=== PATIENT | female | born 1980 | race Caucasian/White ===

== ENCOUNTER 2018-01-22 15:33 | Emergency (ER) | payer OTHER ==
[2018-01-22 16:01] VITALS: BP 114/74
--- NOTE | 2018-01-22 16:31 | UC ---
Complaint Female HPI - HPI Summary HPI Summary: 37 y/o female presents to the urgent care c/o burning with urinating, frequency since this morning. she thinks it is possible UTI since she had it in the past. Pt reports Pain this morning was 8/10, but now after a normal bowel movement is like a 2/10. Pt has her menstrual cycle which stared yesterday. Pt has been drinking fluids. Pt denies fever, flank pain, Hx of kidney stones, SOB , chest pain, abdominal pain/ N/V/D, vaginal discharge. - History Of Current Complaint Chief Complaint: UCGU Stated Complaint: BURNING URINATION Time Seen by Provider: 01/22/18 16:17 Hx Obtained From: Patient Hx Last Menstrual Period: 01/21/18 Onset/Duration: Gradual Onset, Lasting Hours - 12 hrs, Still Present Severity Initially: Mild Severity Currently: Moderate Pain Intensity: 8 Pain Scale Used: 0-10 Numeric Character: Burning Aggravating Factor(s): Urination Alleviating Factor(s): Nothing Associated Signs And Symptoms: Positive: Negative. Negative: Fever, Back Pain, Vaginal Discharge, Nausea, Genital Swelling, Genital Blisters - Risk Factors Ectopic Risk Factor: Negative Ovarian Torsion Risk Factor: Negative - Allergies/Home Medications Allergies/Adverse Reactions: Allergies Allergy/AdvReac Type Severity Reaction Status Date / Time codeine Allergy Intermediate Unknown Verified 01/22/18 16:01 Reaction Details Sulfa (Sulfonamide Allergy Rash Verified 01/22/18 16:01 Antibiotics) PMH/Surg Hx/FS Hx/Imm Hx Previously Healthy: Yes - Pt denies PMHX - Surgical History Surgical History: Yes Surgery Procedure, Year, and Place: WISDOM TEETH - Family History Family History: Lung cancer - Social History Occupation: Employed Full-time Lives: With Family Alcohol Use: Weekly Substance Use Type: None Smoking Status (MU): Former Smoker Length of Time of Smoking/Using Tobacco: 8 yrs When Did the Patient Quit Smoking/Using Tobacco: 2014 Household Exposure Type: Cigarettes Review of Systems Constitutional: Negative Skin: Negative Eyes: Negative ENT: Negative Respiratory: Negative Cardiovascular: Negative Gastrointestinal: Negative Genitourinary: Dysuria, Frequency, Urgency Motor: Negative Neurovascular: Negative Musculoskeletal: Negative Neurological: Negative Psychological: Negative Is Patient Immunocompromised?: No All Other Systems Reviewed And Are Negative: Yes Physical Exam - Summary Physical Exam Summary: VITAL SIGNS: Reviewed. GENERAL: Patient is a well developed and nourished female who is sitting comfortable in the examining table. Patient is not in any acute respiratory distress. HEAD AND FACE: No signs of trauma. No ecchymosis, hematomas or skull depressions. No sinus tenderness. EYES: PERRLA, EOMI x 2, No injected conjunctiva, clear watery eyes, no nystagmus. No photophobia. EARS: Hearing grossly intact. Ear canals and tympanic membranes are within normal limits. MOUTH: pharynx with no erythema, no exudates,no palatal petechiae. no B/L tonsillar enlargement Uvula in midline. NECK: Supple, trachea is midline, no lymphadenopathy, no JVD, no carotid bruit, no c-spine tenderness, neck with full ROM. CHEST: Symmetric, no tenderness at palpation LUNGS: Clear to auscultation bilaterally. No wheezing or crackles. CVS: Regular rate and rhythm, S1 and S2 present, no murmurs or gallops appreciated. ABDOMEN: Soft, non-tender. No signs of distention. No rebound no guarding, and no masses palpated. Bowel sounds are normal. BACK:no scoliosis or lesions, non tender to palpation, No B/L CVA tenderness EXTREMITIES: FROM in all major joints, no edema, no cyanosis or clubbing. NEURO: Alert and oriented x 3. No acute neurological deficits. Speech is normal and follows commands. SKIN: Dry and warm Triage Information Reviewed: Yes Vital Signs: Initial Vital Signs Temp 98.0 F 01/22/18 15:56 Pulse 69 01/22/18 15:56 Resp 18 01/22/18 15:56 BP 114/74 01/22/18 15:56 Pulse Ox 100 01/22/18 15:56 Complaint Female Dx - Course Course Of Treatment: 37 y/o female presents to the urgent care c/o burning with urinating, frequency since this morning. she thinks it is possible UTI since she had it in the past. Pt reports Pain this morning was 8/10, but now after a normal bowel movement is like a 2/10. Pt has her menstrual cycle which stared yesterday. Pt has been drinking fluids. Pt denies fever, flank pain, Hx of kidney stones, SOB, chest pain, abdominal pain/ N/V/D, vaginal discharge. Hx obtained. PE: WNL. UA results: Blood 2+. Pt w/o any B/L CVA tenderness. Pt w/ her menstrual cycle now. Pt will be Rx Pyridium 100mg PO TID x 2 days for Dysuria. Advised to increase fluid intake. Urine sent for culture if any abnormality Pt will be notified for further treatment. Pt advised If symptoms do not improve to return to the urgent care or f/u with PCP or if flank pain develops w/ urinary symptoms to immediately to go to the ER for further treatment. D/C instructions explained. Pt understood and agreed. Left the clinic ambulating. - Differential Dx/Diagnosis Differential Diagnosis/HQI/PQRI: Cervicitis, Pelvic Inflammatory Disease, Renal Colic, Ureteral Stone, Urinary Tract Infection Provider Diagnoses: 1- Dysuria Discharge - Sign-Out/Discharge Documenting (check all that apply): Patient Departure - D/C home All imaging exams completed and their final reports reviewed: No Studies - Discharge Plan Condition: Stable Disposition: HOME Prescriptions: Phenazopyridine TAB* [Pyridium 100 mg TAB*] 100 mg PO TID #6 tab Patient Education Materials: Dysuria (ED) Referrals: Tyler Soria MD [Primary Care Provider] - 2 Days Additional Instructions: 1- Please take Pyridium 100 mg PO TID x 2 days to alleviate urinary symptoms. Increase increase fluid intake. drink cranberry juice. 2-Urine sent for culture if any abnormality, you will be notified for further treatment. 3- If you develop severe flank pain w/ your urinary symptoms please go immediately to the ER for further treatment. 4-If symptoms do not improve please return to the urgent care or f/u with your PCP for further management - Billing Disposition and Condition Condition: STABLE Disposition: Home
== END 2018-01-22 16:57 | disposition home or self-care (01) ==
LOC: UCEAST 15:33
DX: R30.0 Dysuria (principal); Z87.440 Personal history of urinary (tract) infections; Z88.5 Allergy status to narcotic agent; Z88.2 Allergy status to sulfonamides; Z87.891 Personal history of nicotine dependence
CPT/HCPCS: 81003; 87086; 99212; G0463

== ENCOUNTER 2018-02-11 08:35 | Emergency (ER) | payer OTHER ==
[2018-02-11 08:46] VITALS: BP 106/66
--- NOTE | 2018-02-11 08:49 | UC ---
Throat Pain/Nasal Willy HPI - HPI Summary HPI Summary: 37 yo female presents with sore throat for the last 3 days. She tells me that her sore throat started 3 days ago as mild, but has progressed to become more painful. Her son was recently dx'd with hand/foot/mouth and she is concerned she may have it. She has not taken anything OTC for her pain. Denies fever, chills, sinus symptoms, cough, or rash. - History of Current Complaint Chief Complaint: UCGeneralIllness Stated Complaint: SORE THROAT Time Seen by Provider: 02/11/18 08:49 Hx Obtained From: Patient Hx Last Menstrual Period: 3 weeks ago Onset/Duration: Gradual Onset Severity: Moderate Pain Intensity: 8 Pain Scale Used: 0-10 Numeric - Allergies/Home Medications Allergies/Adverse Reactions: Allergies Allergy/AdvReac Type Severity Reaction Status Date / Time codeine Allergy Intermediate Unknown Verified 02/11/18 08:41 Reaction Details Sulfa (Sulfonamide Allergy Rash Verified 02/11/18 08:41 Antibiotics) Home Medications: Home Medications Aspirin/Acetaminophen/Caffeine [Excedrin Extra Strength Caplet] 1 each PO ONCE PRN 02/11/18 [History Confirmed 02/11/18] Ibuprofen TAB* [Advil TAB*] 400 mg PO ONCE PRN 02/11/18 [History Confirmed 02/11] Naproxen Sodium [Aleve] 440 mg PO ONCE PRN 02/11/18 [History Confirmed 02/11/18] PMH/Surg Hx/FS Hx/Imm Hx - Additional Past Medical History Additional PMH: None - Surgical History Surgical History: Yes Surgery Procedure, Year, and Place: WISDOM TEETH - Family History Known Family History: Positive: Respiratory Disease Family History: Lung cancer - Social History Occupation: Employed Full-time Lives: With Family Alcohol Use: Weekly Substance Use Type: None Smoking Status (MU): Former Smoker Length of Time of Smoking/Using Tobacco: 8 yrs When Did the Patient Quit Smoking/Using Tobacco: 2014 Household Exposure Type: Cigarettes Review of Systems Constitutional: Negative Skin: Negative Eyes: Negative ENT: Sore Throat Respiratory: Negative Cardiovascular: Negative Gastrointestinal: Negative Neurovascular: Negative Neurological: Negative Psychological: Negative All Other Systems Reviewed And Are Negative: Yes Physical Exam - Summary Physical Exam Summary: GENERAL: NAD. WDWN. No pain distress. SKIN: No rashes, sores, lesions, or open wounds. HEENT: Head: AT/NC Eyes: Conjunctiva clear without inflammation or discharge. Ears: Hearing grossly normal. TMs intact, no bulging, erythema, or edema. Nose: Nasal mucosa pink and moist. NTTP maxillary and frontal sinus. Throat: Posterior oropharynx mild erythema and 2+ tonsillar enlargement. No exudates. Uvula midline. No hoarse voice or muffled voice. NECK: Supple. Nontender. No lymphadenopathy. CHEST: CTAB. No r/r/w. No accessory muscle use. Breathing comfortably and in no distress. CV: RRR. Without m/r/g. Pulses intact. Cap refill <2seconds NEURO: Alert. PSYCH: Age appropriate behavior. Triage Information Reviewed: Yes Vital Signs: Initial Vital Signs Temp 97.3 F 02/11/18 08:39 Pulse 80 02/11/18 08:39 Resp 16 02/11/18 08:39 BP 106/66 02/11/18 08:39 Pulse Ox 100 02/11/18 08:39 Vital Signs Reviewed: Yes Throat Pain/Nasal Course/Dx - Course Course Of Treatment: Pharyngitis - Differential Dx/Diagnosis Provider Diagnoses: Pharyngitis Discharge - Sign-Out/Discharge Documenting (check all that apply): Patient Departure All imaging exams completed and their final reports reviewed: No Studies - Discharge Plan Condition: Stable Disposition: HOME Prescriptions: Azithromycin TAB* [Zithromax TAB (Z-EDELMIRA) 250 mg #6 tabs] 2 tab PO .TODAY, THEN 1 DAILY #1 [email or web address] Patient Education Materials: Pharyngitis (ED) Referrals: Tyler Soria MD [Primary Care Provider] - Additional Instructions: If you develop a fever, shortness of breath, chest pain, new or worsening symptoms - please call your PCP or go to the ED. - Billing Disposition and Condition Condition: STABLE Disposition: Home
== END 2018-02-11 09:04 | disposition home or self-care (01) ==
LOC: UCEAST 08:35
DX: J02.9 Acute pharyngitis, unspecified (principal); Z88.5 Allergy status to narcotic agent; Z88.2 Allergy status to sulfonamides; Z87.891 Personal history of nicotine dependence
CPT/HCPCS: 99212; G0463

== ENCOUNTER 2019-07-14 08:13 | Inpatient (IN) | payer OTHER ==
[2019-07-14] MEDS ORDERED: Buffered Lidocaine 1% SYRIN* 1 ML/SYRINGE INTRADERM ONE (08:36)
[2019-07-14] MEDS ORDERED: Lactated Ringers 1000 ML Bag* 1,000 ML IV ONE ×2 (08:36→19:05)
[2019-07-14] MEDS ORDERED: Oxytocin in LR* 20 UNITS/1,000 ML BAG IVPB SCH ×3 (09:00→23:45)
[2019-07-14] MEDS: Lactated Ringers 1000 ML Bag* 1,000 ML IV SCH ×2 (09:59→23:51)
[2019-07-14 10:00] LABS: ABS Lymphocytes 1.6 10^3/ul (1.0-4.8); ABS Monocytes 0.6 10^3/ul (0-0.8); ABS Neutrophils 5.1 10^3/ul (1.5-7.7); Eosinophil % 0.5 %; Hematocrit 33 % (35-47); Hemoglobin 11.3 g/dL (12.0-16.0); Lymphocyte % 21.9 %; Mean Corpuscular HGB Conc 34 g/dL (31-36); Mean Corpuscular Hemoglobin 31 pg (27-31); Mean Corpuscular Volume 89 fL (80-97); Mean Platelet Volume 11.2 fL (7.4-10.4); Nucleated Red Blood Cells % 0.1; Platelet Count 116 10^3/uL (150-450); Red Blood Count 3.71 10^6 /uL (3.70-4.87); Red Cell Distribution Width 14 % (10-15); White Blood Count 7.5 10^3/uL (3.5-10.8)
[2019-07-14 10:22] LABS: Urine Benzodiazepine Screen None Detected (None Detect); Urine Opiates Screen None Detected (None Detect)
--- NOTE | 2019-07-14 13:54 | HP ---
General Information - Reason for Visit induction of labor 39 2/7 weeks - General Information Maternal Age: 39 Grav: 2 Para: 1 SAB: 0 IEA: 0 Estimated Due Date: 07/19/19 Determined By: LMP Maternal Blood Type and Rh: B Positive - Results this Serology/RPR Result: Non-Reactive Rubella Result: Immune HBsAg Result: Negative HIV Result: Negative GBS Culture Result: Negative Past Medical History Delivery History: See Records Pertinent Past Medical History: See Records Pertinent Family History: See Records - Antepartal Records Antepartal Records: Reviewed, Uncomplicated Review of Systems Constitutional: Comfortable CV Complaint: No Respiratory: Shortness of Breath: No Gastrointestinal: No Nausea/Vomiting, Normal Bowel Movement Genitourinary: No Dysuria, No Bleeding, No Leaking Fluid Musculoskeletal: No Complaint Neurological: No Headache Movement: Normal Exam Allergies/Adverse Reactions: Allergies codeine Allergy (Intermediate, Verified 02/11/18 08:41) Unknown Reaction Details Sulfa (Sulfonamide Antibiotics) Allergy (Verified 02/11/18 08:41) Rash T : 98.5 BP : 132/82 P : 115 Lab Values - Entire Visit: Laboratory Tests 07/14/19 07/14/19 07/14/19 09:25 09:25 09:25 WBC 7.5 RBC 3.71 Hgb 11.3 L Hct 33 L MCV 89 MCH 31 MCHC 34 RDW 14 Plt Count 116 L MPV 11.2 H Neut % (Auto) 68.7 Lymph % (Auto) 21.9 [place] % (Auto) 8.4 Eos % (Auto) 0.5 Baso % (Auto) 0.5 Absolute Neuts (auto) 5.1 Absolute Lymphs (auto) 1.6 Absolute Monos (auto) 0.6 Absolute Eos (auto) 0.0 Absolute Basos (auto) 0.0 Absolute Nucleated RBC 0.0 Nucleated RBC % 0.1 Urine Opiates Screen None detected Ur Barbiturates Screen None detected Ur Phencyclidine Scrn None detected Ur Amphetamines Screen None detected U Benzodiazepines Scrn None detected Urine Cocaine Screen None detected U Cannabinoids Screen None detected Blood Type B Positive Antibody Screen Negative - Measurements Height: 5 ft 8 in Weight: 209 lb Weight in lbs: [phone] Body Mass Index (BMI): 31.7 Pre- Weight: 184 lb Weight Gained This : 25 lbs and 0 ozs - Exam Breast: Breast Exam Deferred CVA: No CVA Tenderness Extremities: No Edema Heart: Normal Rhythm/Heart Sounds HEENT: No Significant Findings Lungs: Clear Bilaterally Rectal: Rectal Exam Deferred Reflexes: DTR 2+ Thyroid: No Thyromegaly - Abdominal Exam Abdomen Exam: Non-Tender - Ultrasound/Biophysical Profile Ultrasound Status: Not Done Targeted Exam Findings Cervical Exam: 1cm Effacement: 50% Station: -3 Presenting Part: Vertex Membrane Status: Intact EFM Findings - External Monitor Findings Baseline Heart Rate: 130 External Monitor Findings: Accelerations Present, No Pattern of Variable or Late Decelerations, Variability Moderate Contractions: None Assessment/Plan - Assessment Pt 39 yo G 2 P 1 at 39 2/7 weeks presents for induction of labor - Plan Plan: Induction, Admit - Anticipate Vaginal Delivery
[2019-07-14] MEDS ORDERED: OBEPIDURAL* 250 ML EPIDURAL ONE (18:33)
[2019-07-14] MEDS ORDERED: Bupivacaine 0.25% SDV PF* 10 ML VIAL INJ ONE (18:40)
[2019-07-14] MEDS ORDERED: Famotidine TAB* 20 MG PO PRN (19:05)
[2019-07-14] MEDS ORDERED: Sodium Citrate/Citric Acid* 15 ML UDC PO PRN (19:05)
[2019-07-14] MEDS ORDERED: Phenylephrine 40 MCG/ML SYRINGE IV PUSH PRN (19:05)
[2019-07-14] MEDS ORDERED: EPHEDrine (Pressors)* 50 MG/ML VIAL IV PUSH PRN (19:05)
[2019-07-14] MEDS ORDERED: OBEPIDURAL* 250 ML EPIDURAL SCH (20:00)
[2019-07-14] MEDS ORDERED: Lactated Ringers 1000 ML Bag* 1,000 ML IV SCH ×2 (20:00→23:45)
[2019-07-14] MEDS ORDERED: Glycerin ADULT SUPP PR PRN (23:32)
[2019-07-14] MEDS ORDERED: Witch Hazel PAD* JAR TOPICAL PRN (23:32)
--- NOTE | 2019-07-14 23:37 | PROCNOTE ---
[facility] OB: Delivery Note - Delivery A Date of : 07/14/19 Time of : 23:01 Sex: Female Score 1 Minute: 9 Score 5 Minutes: 9 Gestational Age in Weeks and Days at Delivery: 39 Weeks and 2 Days Delivery Method: Spontaneous Vaginal Labor: Induced Did Patient attempt ?: N/A, No Previous Amniotic Fluid: Clear Estimated Blood Loss: 300 Anesthesia/Analgesia: CEI for Labor Delivered By: Marli Washburn - Nursery Level of Nursery: Regular/Bedside - Perineum Perineal Injury: 2nd Degree - repair with 2.0 vicryl X 2 standard fashion - Events Delivery Events of Note: Pitocin During Labor, Supplemental O2 to Mother, Internal Scalp EKG
[2019-07-14] MEDS: Dibucaine 1% 28.35 GM TUBE PR PRN (23:51)
[2019-07-14] MEDS: Ibuprofen TAB* 600 MG PO PRN (23:52)
[2019-07-15] MEDS: Ibuprofen TAB* 600 MG PO PRN ×3 (06:34→18:14)
[2019-07-15 07:45] LABS: ABS Basophils 0.1 10^3/ul (0-0.2); ABS Lymphocytes 1.5 10^3/ul (1.0-4.8); ABS Monocytes 0.7 10^3/ul (0-0.8); ABS Neutrophils 7.7 10^3/ul (1.5-7.7); Eosinophil % 0.2 %; Hematocrit 29 % (35-47); Hemoglobin 10.3 g/dL (12.0-16.0); Mean Corpuscular HGB Conc 35 g/dL (31-36); Mean Corpuscular Hemoglobin 31 pg (27-31); Mean Corpuscular Volume 89 fL (80-97); Mean Platelet Volume 10.5 fL (7.4-10.4); Platelet Count 112 10^3/uL (150-450); Red Blood Count 3.31 10^6 /uL (3.70-4.87); Red Cell Distribution Width 14 % (10-15)
[2019-07-15] MEDS: Ferrous Gluconate TAB* 324 MG TAB PO SCH ×2 (08:32→19:39)
[2019-07-15] MEDS: Docusate CAP* 100 MG PO SCH ×3 (08:32→19:39)
[2019-07-15] MEDS: Acetaminophen TAB* 325 MG PO PRN ×3 (08:36→19:38)
[2019-07-15] MEDS: Simethicone TAB* 80 MG TAB.CHEW PO SCH ×2 (08:36→12:10)
[2019-07-15] MEDS: Dibucaine 1% 28.35 GM TUBE PR PRN (19:38)
[2019-07-16] MEDS: Ibuprofen TAB* 600 MG PO PRN (04:03)
[2019-07-16 08:45] VITALS: BP 138/82
[2019-07-16] MEDS: Ferrous Gluconate TAB* 324 MG TAB PO SCH (08:50)
[2019-07-16] MEDS: Acetaminophen TAB* 325 MG PO PRN (08:50)
[2019-07-16] MEDS: Docusate CAP* 100 MG PO SCH (08:50)
== END 2019-07-16 12:59 | disposition home or self-care (01) | DRG 560 ==
LOC: MCHOBOUT 08:13 → MCHOB 09:13
PROVIDERS: ADMIT Obstetrics & Gynecology; ATTEND Obstetrics & Gynecology
PROC: 10E0XZZ Delivery of Products of Conception, External Approach (ICD-10-PCS; principal; 2019-07-14)
PROC: 3E033VJ Introduction of Other Hormone into Peripheral Vein, Percutaneous Approach (ICD-10-PCS; 2019-07-14)
PROC: 10907ZC Drainage of Amniotic Fluid, Therapeutic from Products of Conception, Via Natural or Artificial Opening (ICD-10-PCS; 2019-07-14)
PROC: 0KQM0ZZ Repair Perineum Muscle, Open Approach (ICD-10-PCS; 2019-07-14)
DX: O99.344 Other mental disorders complicating childbirth (principal); Z37.0 Single live birth; F41.8 Other specified anxiety disorders; O70.1 Second degree perineal laceration during delivery; Z3A.39 39 weeks gestation of pregnancy
CPT/HCPCS: 36415; 80307; 85025; 86850; 86900; 86901; A9270-GY; G0480; J3490